=== PATIENT | male | born 1945 | race Caucasian/White ===

== ENCOUNTER 2024-07-27 08:38 | Outpatient (CLI) | payer MEDICARE ==
[2024-07-27] MEDS ORDERED: Iopamidol 300 61% 100 ML VIAL FS ONE (14:57)
== END 2024-07-27 08:39 | disposition home or self-care (01) ==
LOC: CSHCT 08:38
PROVIDERS: ATTEND Internal Medicine
DX: R22.1 Localized swelling, mass and lump, neck (principal)
CPT/HCPCS: 36415; 70491; 82565; Q9967